=== PATIENT | male | born 1945 | race Caucasian/White ===

== ENCOUNTER 2016-07-03 07:34 | Emergency (ER) | payer MEDICARE, MEDICAID ==
[2016-07-03] MEDS ORDERED: PREDNISONE 20 MG TABLET ONE (08:00)
[2016-07-03] MEDS ORDERED: DIAZEPAM 5 MG TABLET ONE (08:01)
[2016-07-03 08:28] LABS: ABSOLUTE NEUTROPHIL COUNT 6.3 K/mm3 (1.8-7.7); BASO # 0.1 K/mm3 (0.0-0.2); BASO % 0.8 % (0.2-1.0); EOS # 0.3 (0.0-0.5); EOS % 3.6 % (0.9-2.9); HEMATOCRIT 42.6 % (32.0-52.0); HEMOGLOBIN 13.8 gm/l (14.0-18.0); IMM NEUT # 0.1 K/mm3 (0-0.2); IMM NEUT% 0.7 % (0-1); LYMPH # 1.5 (1.0-4.8); LYMPH % 16.8 % (15-45); MEAN CELL VOLUME 88.8 fl (80.0-94.0); MEAN CORPUSCULAR HEMOGLOBIN 28.8 pg (27.0-31.0); MEAN CORPUSCULAR HGB CONC 32.4 g/dl (33.0-37.0); MEAN PLATELET VOLUME 10.6 fl (7.4-10.4); MONO # 0.7 (0.0-0.8); MONO % 7.6 % (4-12); NEUT % 70.5 % (43-75); PLATELET COUNT 302 K/mm3 (130-400); RED CELL DISTRIBUTION WIDTH 14.2 % (11.5-14.5)
[2016-07-03] MEDS ORDERED: MORPHINE SULFATE 4 MG/ML SYRINGE ONE ×3 (08:28→10:48)
[2016-07-03 08:41] LABS: ALB/GLOB RATIO 1.4 (>1.0); ALBUMIN 4.2 gm/dL (3.5-5.7); CALCIUM 9.6 mg/dL (8.6-10.3)
[2016-07-03] MEDS: IOPAMIDOL 300 (61%) 100 ML VIAL IV ONE (08:58)
--- NOTE | 2016-07-03 09:28 | CT ---
CT ABDOMEN AND PELVIS WITH CONTRAST HISTORY: Severe right hip, leg, pelvis pain. TECHNIQUE: Following intravenous administration of 100cc of Isovue-370, contiguous axial images were acquired from the lung bases to the ischial tuberosities. Oral contrast was not administered. COMPARISON: 03/13/2015 FINDINGS: LUNG BASES: No gross airspace consolidation or pleural effusion. LIVER: No focal lesion. SPLEEN: No focal lesion. PANCREAS: No focal lesion. ADRENAL GLANDS: No mass effect. KIDNEYS: No collecting system dilatation. 3.6 cm right renal cyst. GALLBLADDER: Redemonstration of mild prominence and mild wall thickening, gallbladder wall thickness of up to 5 mm. BOWEL: Moderate fecal loading. Limited assessment of the distal colon due to decompression. No abnormal small bowel dilatation. Sigmoid diverticulosis without findings of diverticulitis. APPENDIX: Normal gas-filled appendix. PELVIC ORGANS: Probable enlarged median lobe of prostate gland, prostate gland 5.3 cm in width. INGUINAL REGIONS: Small bilateral fatty inguinal hernia formation. FREE FLUID: No gross free fluid identified. ABDOMINOPELVIC LYMPH NODES: No abnormally enlarged lymph nodes identified. ABDOMINAL AORTA: Moderate atherosclerotic calcifications without aneurysmal dilatation. OSSEOUS STRUCTURES: Findings compatible with minor anterior compression fracture of the L3 vertebra without gross paraspinal edema or retropulsion. Additional findings of thoracolumbar spondylosis, moderate to severe canal stenosis at L4-5 prominent asymmetric right facet degeneration at L5-S1. Stable deformity of the right ilium. The pelvic ring and right proximal femur appear grossly no obvious right hip effusion or enhancement. IMPRESSION: 1. No acute fracture of the right proximal femur or pelvic ring. Findings of lumbar spondylosis, moderate to severe canal stenosis at the L4-5 level. Nonacute compression fracture at L3 without retropulsion. 2. Redemonstration of gallbladder wall thickening, chronic cholecystitis is possible. 3. Sigmoid diverticulosis without diverticulitis. Noninflammatory, nonobstructive appearance of bowel. Normal appendix. 4. Redemonstration of aortic atherosclerotic disease, right renal cyst, prostatomegaly, and fatty inguinal hernia formation. Findings discussed with Dr. Mccormick of the Emergency Medicine clinical service on 07/03/2016 at 0925 hours.
[2016-07-03 09:52] LABS: SPECIFIC GRAVITY 1.015 (1.001-1.030); URINE BILIRUBIN NEGATIVE (NEGATIVE); URINE BLOOD NEGATIVE (NEGATIVE); URINE GLUCOSE (UA) NEGATIVE (NEGATIVE); URINE LEUKOCYTE ESTERASE NEGATIVE (NEGATIVE); URINE NITRITE NEGATIVE (NEGATIVE); URINE PROTEIN 1+ (NEGATIVE); URINE UROBILINOGEN NORMAL (0-1 mg/dl)
[2016-07-03 09:55] LABS: URINE APPEARANCE CLEAR; URINE COLOR YELLOW
[2016-07-03 10:02] LABS: URINE BACTERIA RARE; URINE EPITHELIAL CELLS 0-1 /hpf; URINE RBC 0-1 /hpf; URINE WBC 0-1 /hpf
== END 2016-07-03 11:46 | disposition home or self-care (01) ==
LOC: ED 07:34
DX: S39.012A Strain of muscle, fascia and tendon of lower back, initial encounter (principal); M54.30 Sciatica, unspecified side; E11.9 Type 2 diabetes mellitus without complications; Z79.84 Long term (current) use of oral hypoglycemic drugs; X50.1XXA Overexertion from prolonged static or awkward postures, initial encounter; Y93.H3 Activity, building and construction; Y92.9 Unspecified place or not applicable